=== PATIENT | male | born 1960 | race Caucasian/White ===

== ENCOUNTER 2017-01-21 07:43 | Day surgery (SDC) | payer OTHER ==
[2017-01-21] MEDS ORDERED: MIDAZOLAM 2 MG/2 ML VIAL IVP ONE (07:45)
[2017-01-21] MEDS ORDERED: diphenhydrAMINE 25 MG CAP PO ONE ×2 (07:45→09:15)
[2017-01-21] MEDS ORDERED: DIAZEPAM 5 MG TAB PO ONE (07:45)
[2017-01-21] MEDS ORDERED: BENZOCAINE UNIT DOSE SPRAY HURRICAINE MM ONE (07:45)
[2017-01-21] MEDS ORDERED: fentaNYL 100 MCG/2 ML INJ IVP ONE (07:45)
[2017-01-21] MEDS ORDERED: FAMOTIDINE 20 MG TAB PO ONE (07:45)
[2017-01-21] MEDS ORDERED: NS 1,000 ML IV ONE ×2 (07:45)
[2017-01-21] MEDS ORDERED: ASPIRIN EC 325 MG TAB PO ONE ×2 (07:45→09:15)
--- NOTE | 2017-01-21 08:09 | CPEKG ---
Heart Rate: 69 RR Interval: 870 P-R Interval: 164 QRSD Interval: 84 QT Interval: 412 QTC Interval: 442 P Morris: 75 QRS Morris: 79 T Wave Morris: 27 EKG Severity - NORMAL ECG - EKG Impression: SINUS RHYTHM Electronically Signed By: Dong Smith 21-Jan-2017 09:49:05
[2017-01-21 08:19] LABS: % IMMATURE GRANULYOCYTES 0.2 % (0.0-1.1); ABSOLUTE IMMATURE GRANULOCYTES 0.01 10^3/uL (0.00-0.10); ADD DIFF? NO; ADD MORPH? NO; ADD SCAN? NO; ATYPICAL LYMPHOCYTE FLAG 0 (0-99); FRAGMENT RBC FLAG 0 (0-99); HEMATOCRIT 41.2 % (40.0-51.0); HEMOGLOBIN 14.6 g/dL (13.7-17.5); LEFT SHIFT FLG 0 (0-99); LIPEMIA HEMOLYSIS FLAG 90 (0-99); MEAN CELL HEMOGLOBIN 31.9 pg (27.9-34.1); MEAN CELL HEMOGLOBIN CONCENTR. 35.4 g/dL (32.4-36.7); MEAN PLATELET VOLUME 9.9 fL (8.7-11.7); PLATELET CLUMPS FLAG 0 (0-99); PLATELET COUNT 197 10^3/uL (150-400); RED BLOOD CELL COUNT 4.58 10^6/uL (4.40-6.38)
[2017-01-21] MEDS ORDERED: LIDOCAINE 1% 300 MG/30 ML SDV ONE (08:19)
[2017-01-21] MEDS ORDERED: fentaNYL 100 MCG/2 ML INJ ONE ×2 (08:19→09:22)
[2017-01-21] MEDS ORDERED: MIDAZOLAM 2 MG/2 ML VIAL ONE ×2 (08:20→09:22)
[2017-01-21] MEDS ORDERED: VERAPAMIL 5 MG/2 ML VIAL ONE (08:20)
[2017-01-21] MEDS ORDERED: HEPARIN 10,000 UNIT/10 ML MDV ONE (08:20)
[2017-01-21] MEDS ORDERED: IOPAMIDOL (ISOVUE-370) 150 ML BTL IV ONE (08:20)
[2017-01-21 08:35] LABS: INR 0.93 (0.83-1.16); PROTIME(PATIENT) 12.4 SEC (12.0-15.0)
[2017-01-21 09:09] LABS: ANION GAP 11 mEq/L (8-16); CALCIUM 9.8 mg/dL (8.5-10.4); CARBON DIOXIDE 21 mEq/l (22-31); CHLORIDE 107 mEq/L (97-110); CHOLESTEROL 204 mg/dL (140-220); CHOLESTEROL/HDL RATIO 2.13 RATIO (1.00-4.97); CREATININE 1.1 mg/dL (0.7-1.3); GLOMERULAR FILTRATION RATE > 60; GLUCOSE 99 mg/dL (70-100); HIGH DENSITY LIPOPROTEIN 96 mg/dL (40-65); LDL/HDL RATIO 1.04 RATIO (1.00-3.64); LOW DENSITY LIPOPROTEIN 100 mg/dL (80-100); NON-HIGH DENSITY LIPOPROTEIN 108 mg/dL (90-129); POTASSIUM 4.5 mEq/L (3.5-5.2); SODIUM 139 mEq/L (134-144); TRIGLYCERIDE 43 mg/dL (40-150); VERY LOW DENSITY LIPOPROTEINS 8 mg/dL (8-25)
[2017-01-21] MEDS ORDERED: FAMOTIDINE 20 MG TAB ONE (09:15)
[2017-01-21] MEDS ORDERED: DIAZEPAM 5 MG TAB ONE (09:15)
--- NOTE | 2017-01-21 13:05 | CPIP ---
[f rep st] INVASIVE CARDIAC PROCEDURE DATE OF PROCEDURE: 01/21/2017 PROCEDURE PERFORMED: 1. Selective coronary angiography. 2. Left heart catheterization. 3. Left ventriculogram. 4. TR band arteriotomy repair. This was a right radial approach. COMPLICATIONS: None. BILL CLERK: Mau Crabtree MD INDICATION FOR PROCEDURE: Identification of coronary disease in a patient with known severe aortic insufficiency, with consideration for valvular replacement if necessary. He also has [place] Heart Association class 2 symptoms of breathlessness with exertion. PROCEDURE IN DETAIL: After informed consent was obtained, n.p.o. status was confirmed, the region o f the right wrist was cleaned, prepped, and draped in sterile fashion. Approximately 5 cc of 1% lid ocaine was utilized for local anesthesia. A plethysmography trace-assisted Dewayne test was performed , documenting dual arterial supply to the right index finger. The patient then underwent the previo usly-mentioned diagnostic procedure with the use of JL4 and R4 curved coronary catheters, as well as a 5-Faroese pigtail catheter. Standard wire exchange technique was utilized for all catheter exchan ges. The right coronary artery is dominant, giving rise to the posterior descending as well as 2 posterol ateral ventricular branches. It is a 4 mm vessel proximally and there was no evidence of flow-limit ing obstruction, dissection, or thrombus. No luminal irregularity to suggest underlying atheroscler osis is present. This is a normal right-dominant coronary. The left main coronary lumen is approximately 6 mm in size and bifurcates into an LAD and circumflex system. The LAD arises in its usual location, giving rise to 2 large diagonal branches, both of wh ich are free of significant flow-limiting disease. Thereafter, the LAD courses the anterior apex an d wraps around the distal vessel moderately. Again, no luminal irregularity, dissection, or thrombu s is identified and there is UMESH-3 flow throughout the left coronary system. The left circumflex v essel is somewhat tortuous in its initial course, but gives rise to 2 important obtuse marginal bran ches, which are both free of significant flow-limiting obstruction. The patient underwent left heart catheterization demonstrating normal left ventricular end-diastolic pressure measured at 13 mmHg. The patient underwent left ventriculogram in the MITCHELL projection, dem onstrating low normal ejection fraction at 53%. The mid anterior wall appeared to be mildly hypokin etic, which is of unclear significance given the coronary circulation. The patient underwent a pull back across the aortic valve, demonstrating no evidence of aortic stenosis. The patient tolerated t he procedure well without immediate complication, with return to the post-cath recovery unit in good and stable condition, and will be discharged later today once he is able to ambulate and take p.o. without assistance. Copy requested to: Esme Hooper /[id number]/[id number]
== END 2017-01-21 14:31 | disposition home or self-care (01) ==
LOC: FCATH 07:43
PROVIDERS: ATTEND Internal Medicine Cardiovascular Disease
PROC: B2111ZZ Fluoroscopy of Multiple Coronary Arteries using Low Osmolar Contrast (ICD-10-PCS; principal; 2017-01-21)
PROC: B2151ZZ Fluoroscopy of Left Heart using Low Osmolar Contrast (ICD-10-PCS; principal; 2017-01-21)
PROC: 4A023N7 Measurement of Cardiac Sampling and Pressure, Left Heart, Percutaneous Approach (ICD-10-PCS; principal; 2017-01-21)
DX: I25.10 Atherosclerotic heart disease of native coronary artery without angina pectoris (principal); I35.1 Nonrheumatic aortic (valve) insufficiency
CPT/HCPCS: J1644; J2250; J3010; Q9967